=== PATIENT | female | born 1965 | race Caucasian/White ===

== ENCOUNTER 2016-12-03 17:34 | Observation (INO) | payer OTHER ==
--- NOTE | 2016-12-03 18:09 | PDOC ---
History of Present Illness - General Chief Complaint: Weakness Stated Complaint: WEAKNESS/DIZZINESS Time Seen by Provider: 12/03/16 17:44 History Source: Patient - History of Present Illness Associated Symptoms: reports: weakness. denies: cough, fever/chills, headaches , nausea/vomiting, shortness of breath Past History - Past Medical History Allergies/Adverse Reactions: Allergies Allergy/AdvReac Type Severity Reaction Status Date / Time No Known Allergies Allergy Verified 12/03/16 18:15 Home Medications: Ambulatory Orders NK [No Known Home Medication] 11/13/14 - Suicide/Smoking/Psychosocial Hx Smoking History: Never smoked Number of Cigarettes Smoked Daily: 0 Hx Alcohol Use: No Drug/Substance Use Hx: No Review of Systems - Review of Systems Constitutional: No: Chills, Fever Respiratory: No: Cough, Shortness of Breath Cardiac (ROS): Yes: Lightheadedness, Syncope. No: Chest Pain, Palpitations ABD/GI: No: Constipated, Diarrhea, Nausea, Vomiting : No: Dysuria Neurological: Yes: Numbness, Dizziness. No: Headache, Tingling *Physical Exam - Physical Exam General Appearance: Yes: Appropriately Dressed. No: Apparent Distress HEENT: positive: Normal Voice Neck: positive: Supple Respiratory/Chest: positive: Lungs Clear, Normal Breath Sounds. negative: Respiratory Distress Cardiovascular: positive: Regular Rate, S1, S2 Gastrointestinal/Abdominal: positive: Soft. negative: Tender Extremity: positive: Normal Inspection. negative: Pedal Edema Integumentary: positive: Dry, Warm Neurologic: positive: Fully Oriented, Alert, Normal Mood/Affect, Motor Strength 5/5, Finger to Nose. negative: Facial Droop (no nystagmus, Monica intact, no drift, no ataxia), Disoriented Heart Score/ECG Review - ECG Intrepretation Comment:: 12/03/16 18:55 Twelve-lead EKG was performed and reviewed by me. There is normal sinus rhythm with a normal rate. The axis is normal. The intervals are normal. There are no ST or T wave abnormalities. Impression: Normal twelve-lead EKG ED Treatment Course - LABORATORY CBC & Chemistry Diagram: 12/04/16 05:10 12/04/16 05:10 - RADIOLOGY Radiology Studies Ordered: Category Date Time Status HEAD CT WITHOUT CONTRAST [CT] Stat CT Scan 12/03/16 18:03 Ordered CHEST X-RAY PORTABLE* [RAD] Stat Radiology 12/03/16 18:03 Ordered Medical Decision Making - Medical Decision Making 12/03/16 18:04 51-year-old female, denies any past medical history, brought in by family for syncope. Patient states while sitting on her couch this evening she became lightheaded and next she remembers is waking up on her couch. Unclear how long she was out for. States she feels better at this time but reports some numbness to her left arm. Denies chest pain, shortness of breath, diaphoresis, nausea, vomiting, headache, visual changes, vertigo, slurred speech or focal weakness. Patient does report feeling generally weak for the past several days. No abdominal pain, change in bowel movements, dysuria, cough, fever or chills. Patient states she has had similar syncope in the past but did not seek medical evaluation at that time. No known cardiac history and no recent cardiac workup PMD: Dr Villela See exam Syncope R/o ACS, less likely CVA No CP or SOB Non-focal in ED -EKG -cxr -labs -anticipate admission to tele OBs . 12/03/16 18:09 12/03/16 18:57 Pt signed out to [facility] pending w/u and admission 12/03/16 19:01 *DC/Admit/Observation/Transfer Diagnosis at time of Disposition: Syncope - Discharge Dispostion Disposition: HOME
[2016-12-03 18:45] LABS: BASOPHIL 0.4 % (0-2.0); EOSINOPHIL 5.6 % (0-4.5); MCH 29.5 pg (25.7-33.7); MCHC 33.8 g/dl (32.0-36.0); MEAN CELL VOLUME 87.3 fl (80-96); MEAN PLT VOLUME 7.4 fl (7.5-11.1); NEUTROPHILS 74.7 % (42.8-82.8); PLATELET COUNT 339 K/MM3 (134-434); RDW 13.8 % (11.6-15.6); WHITE BLOOD COUNT 10.3 K/mm3 (4.0-10.0)
[2016-12-03 19:16] LABS: ALBUMIN 4.1 g/dl (3.4-5.0); ANION GAP 7 (8-16); BILIRUBIN,TOTAL 0.2 mg/dL (0.2-1.0); CALCIUM 9.2 mg/dL (8.5-10.1); CO2 30 mmol/L (21-32); CREATININE 0.9 mg/dL (0.55-1.02); GLUCOSE,RANDOM 99 mg/dL (74-106); SGOT/AST 15 U/L (15-37); SGPT/ALT 29 U/L (12-78); TOT PROT 7.8 g/dl (6.4-8.2)
[2016-12-03 19:18] LABS: ALK PHOS 145 U/L (45-117); CPK 105 IU/L (26-192); TROPONIN I < 0.02 ng/ml (0.00-0.05)
--- NOTE | 2016-12-03 19:52 | PDOC ---
*Physical Exam - Vital Signs Last Vital Signs Temp Pulse Resp BP Pulse Ox 97.8 F 82 18 136/73 100 12/03/16 17:36 12/03/16 17:36 12/03/16 17:36 12/03/16 17:36 12/03/16 17:36 - Physical Exam General Appearance: Yes: Appropriately Dressed Respiratory/Chest: positive: Lungs Clear, Normal Breath Sounds Cardiovascular: positive: Regular Rhythm, Regular Rate (is) Gastrointestinal/Abdominal: positive: Normal Bowel Sounds, Soft Extremity: positive: Normal Capillary Refill Integumentary: positive: Normal Color, Dry, Warm Neurologic: positive: Fully Oriented, Alert ED Treatment Course - LABORATORY CBC & Chemistry Diagram: 12/03/16 18:41 12/03/16 18:41 - ADDITIONAL ORDERS Additional order review: Laboratory Results 12/03/16 12/03/16 18:41 18:41 Sodium 140 Potassium 4.5 Chloride 103 Carbon Dioxide 30 Anion Gap 7 L BUN 14 Creatinine 0.9 Creat Clearance w eGFR > 60 Random Glucose 99 Calcium 9.2 Total Bilirubin 0.2 AST 15 ALT 29 Alkaline Phosphatase 145 H D Creatine Kinase 105 Troponin I < 0.02 B-Natriuretic Peptide 62.24 Total Protein 7.8 Albumin 4.1 12/03/16 18:41 RBC 4.78 MCV 87.3 MCHC 33.8 RDW 13.8 D MPV 7.4 L Neutrophils % 74.7 D Lymphocytes % 14.7 D Monocytes % 4.6 Eosinophils % 5.6 H Basophils % 0.4 Medical Decision Making - Medical Decision Making 12/03/16 20:41 patient currently asymptomatic. due to syncope prior to arrival patient is placed on obs/tele for further monitoring. patient signed out to [facility] for further management of care. *DC/Admit/Observation/Transfer Diagnosis at time of Disposition: Syncope Qualifiers: Syncope type: unspecified Qualified Code(s): R55 - Syncope and collapse; R55 - Syncope and collapse - Discharge Dispostion Admit: Yes
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
--- NOTE | 2016-12-03 22:31 | PDOC ---
*Physical Exam - Vital Signs Last Vital Signs Temp Pulse Resp BP Pulse Ox 97.8 F 82 18 136/73 100 12/03/16 17:36 12/03/16 17:36 12/03/16 17:36 12/03/16 17:36 12/03/16 17:36 ED Treatment Course - LABORATORY CBC & Chemistry Diagram: 12/03/16 18:41 12/03/16 18:41 - ADDITIONAL ORDERS Additional order review: Laboratory Results 12/03/16 12/03/16 18:41 18:41 Sodium 140 Potassium 4.5 Chloride 103 Carbon Dioxide 30 Anion Gap 7 L BUN 14 Creatinine 0.9 Creat Clearance w eGFR > 60 Random Glucose 99 Calcium 9.2 Total Bilirubin 0.2 AST 15 ALT 29 Alkaline Phosphatase 145 H D Creatine Kinase 105 Troponin I < 0.02 B-Natriuretic Peptide 62.24 Total Protein 7.8 Albumin 4.1 12/03/16 18:41 RBC 4.78 MCV 87.3 MCHC 33.8 RDW 13.8 D MPV 7.4 L Neutrophils % 74.7 D Lymphocytes % 14.7 D Monocytes % 4.6 Eosinophils % 5.6 H Basophils % 0.4 Medical Decision Making - Medical Decision Making 12/03/16 22:30 Pt seen by the Advanced Practice Provider under my direct supervision Ancillary studies reviewed I agree with plan as outlined by the Advanced Practice Provider *DC/Admit/Observation/Transfer Diagnosis at time of Disposition: Syncope
[2016-12-03 22:57] LABS: URINE APPEARANCE CLEAR; URINE BILIRUBIN NEGATIVE (NEGATIVE); URINE BLOOD NEGATIVE (NEGATIVE); URINE COLOR STRAW; URINE GLUCOSE (UA) NEGATIVE (NEGATIVE); URINE KETONE NEGATIVE (NEGATIVE); URINE NITRITE NEGATIVE (NEGATIVE); URINE PROTEIN NEGATIVE (NEGATIVE); URINE UROBILINOGEN NEGATIVE mg/dL (0.2-1.0)
[2016-12-04 01:36] LABS: CPK 87 IU/L (26-192); TROPONIN I < 0.02 ng/ml (0.00-0.05)
[2016-12-04 06:08] LABS: BASOPHIL 0.4 % (0-2.0); EOSINOPHIL 10.6 % (0-4.5); MCH 30.1 pg (25.7-33.7); MCHC 34.3 g/dl (32.0-36.0); MEAN CELL VOLUME 87.8 fl (80-96); MEAN PLT VOLUME 7.6 fl (7.5-11.1); NEUTROPHILS 52.6 % (42.8-82.8); PLATELET COUNT 356 K/MM3 (134-434); RDW 13.7 % (11.6-15.6); WHITE BLOOD COUNT 9.1 K/mm3 (4.0-10.0)
[2016-12-04 06:34] LABS: ANION GAP 7 (8-16); CALCIUM 9.5 mg/dL (8.5-10.1); CO2 30 mmol/L (21-32); MAGNESIUM 2.4 mg/dL (1.8-2.4)
[2016-12-04 06:40] LABS: CPK 80 IU/L (26-192); CREATININE 0.9 mg/dL (0.55-1.02); GLUCOSE,RANDOM 97 mg/dL (74-106); PHOSPHOROUS 4.1 mg/dL (2.5-4.9); TROPONIN I < 0.02 ng/ml (0.00-0.05)
--- NOTE | 2016-12-04 07:55 | PN ---
Physical Exam: SUBJECTIVE: Patient seen and examined at bedside. Daughter present who served as vision impaired teacher. Patient reports complete resolution of her symptoms. She does not feel "fatigued" or like she is going to pass out. The left hand/arm numbness she experienced has resolved. Of note, patient left arm and leg are smaller and shorter than her right arm and leg. 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 She has never worn a brace, or used orthotics. She denies any history of hip OBJECTIVE: Vital Signs Period Temp Pulse Resp BP Sys/Looney Pulse Ox Last 24 Hr 70-77 15-16 128-134/68-78 99-100 GENERAL: The patient is awake, alert, and fully oriented, in no acute distress. HEAD: Normal with no signs of trauma. EYES: PERRLA, extraocular movements intact, sclera anicteric, conjunctiva clear. No ptosis. ENT: Ears normal, nares patent, oropharynx clear without exudates, moist mucous membranes. No palatine myoclonus. No TMJ clicking. NECK: Trachea midline, full range of motion, supple. LUNGS: Breath sounds equal, clear to auscultation bilaterally, no wheezes, no crackles, no accessory muscle use. HEART: Regular rate and rhythm, S1, S2 without murmur, rub or gallop. ABDOMEN: Soft, nontender, nondistended, normoactive bowel sounds, no guarding, no rebound, no hepatosplenomegaly, no masses. UPPER EXTREMITIES: 2+ pulses, warm, well-perfused, no edema. Right arm is smaller and shorter than left arm, decreased 3/5 motor right hand, 5/5 motor left hand, 5/5 sensory right and left LOWER EXTREMITIES: 2+pulses, warm, well-perfused, no edema. Left leg is smaller in circumference than right leg. Ambulates without apparent limp. Able to heel/ toe walk. Negative pronator drift. Positive Rhomberg. 5/5 motor, 5/5 sensory. NEUROLOGICAL: Cranial nerves II through XII grossly intact. Normal speech, steady gait. observed. PSYCH: Normal mood, normal affect. SKIN: Warm, dry, normal turgor, no rashes or lesions noted Laboratory Results - last 24 hr 12/03/16 12/04/16 12/04/16 21:58 00:50 05:10 WBC 9.1 RBC 4.59 Hgb 13.8 Hct 40.3 MCV 87.8 MCH 30.1 MCHC 34.3 RDW 13.7 Plt Count 356 MPV 7.6 Neutrophils % 52.6 D Lymphocytes % 29.1 D Monocytes % 7.3 Eosinophils % 10.6 H D Basophils % 0.4 Sodium Potassium Chloride Carbon Dioxide Anion Gap BUN Creatinine Random Glucose Calcium Phosphorus Magnesium Creatine Kinase 87 Troponin I < 0.02 Urine Color Straw Urine Appearance Clear Urine pH 8.0 Urine Protein Negative Urine Glucose (UA) Negative Urine Ketones Negative Urine Blood Negative Urine Nitrite Negative Urine Bilirubin Negative Urine Urobilinogen Negative 12/04/16 05:10 WBC RBC Hgb Hct MCV MCH MCHC RDW Plt Count MPV Neutrophils % Lymphocytes % Monocytes % Eosinophils % Basophils % Sodium 140 Potassium 4.2 Chloride 103 Carbon Dioxide 30 Anion Gap 7 L BUN 13 Creatinine 0.9 Random Glucose 97 Calcium 9.5 Phosphorus 4.1 Magnesium 2.4 Creatine Kinase 80 Troponin I < 0.02 Urine Color Urine Appearance Urine pH Urine Protein Urine Glucose (UA) Urine Ketones Urine Blood Urine Nitrite Urine Bilirubin Urine Urobilinogen Current Medications Generic Name Dose Route Start Last Admin Trade Name Freq PRN Reason Stop Dose Admin Enoxaparin Sodium 40 mg 12/05/16 10:00 Lovenox - SQ DAILY KIERSTEN ASSESSMENT/PLAN: 51 year-old female with no significant PMH admitted for syncopal episode. 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 Yap (neuro), Lili (oncology), Zarina ( radiology), Betty (neurosurgery) --evaluations are ongoing re: immediate and long-term observation/treatment Syncope --more likely neuro-related than cardiac --serial troponins negative --ECG not suggestive of acute ischemic event --Echo: LV normal; RV normal; trace PI --telemetry monitoring --cardiology following F/E/N Fluids: PO intake adequate Electrolytes: replete as indicated Nutrition: regular diet DVT prophylaxis: lovenox, oob, ambulation Physical therapy evaluation Dispo: continues to require inpatient care. Full Code. Visit type - Emergency Visit Emergency Visit: Yes ED Registration Date: 12/04/16 Care time: The patient presented to the Emergency Department on the above date and was hospitalized for further evaluation of their emergent condition. - New Patient This patient is new to me today: Yes Date on this admission: 12/04/16 - Critical Care Critical Care patient: No
[2016-12-04 10:02] LABS: URINE LEUK ESTERASE Negative (NEGATIVE)
--- NOTE | 2016-12-04 10:31 | CON.CARD ---
Cardiology Consult (text) - Consultation Consultation Note: cc: syncope hpi: 51 f no sig pmhx here with syncope. Pt has no hx hrt dz. Yesterday she did not eat or drink much and then was out shopping and pushing cart up hill to go home. While walking home began to feel weak, lightheaded. When got home she sat down and felt lightheaded still and thinks she may have passed out and awoke a few minutes later on the couch. No palps, cp, sob, pnd, orthopnea, le evin. Feels well today. pmh: per hpi psh: nc social: no tob fam: no premature cad, scd ros: per hpi; no nvd, fever, cough, nasal congestion, wt loss, muscle pain, gib , hematuria, dysuria, vision changes, rashid meds: none taken pe: Vital Signs Period Temp Pulse Resp BP Sys/Looney Pulse Ox Last 24 Hr 97.8 F-98.7 F 70-82 15-18 102-136/64-78 99-100 nad no jvd rrr s1s2 no mrg cta bl nl eff aaox3 no le e/c/c abd nt nd pos bs no jaundice diaphoresis pos dp pt no carotid bruits Laboratory Last Values WBC 9.1 K/mm3 (4.0-10.0) 12/04/16 05:10 RBC 4.59 M/mm3 (3.60-5.2) 12/04/16 05:10 Hgb 13.8 GM/dL (10.7-15.3) 12/04/16 05:10 Hct 40.3 % (32.4-45.2) 12/04/16 05:10 MCV 87.8 fl (80-96) 12/04/16 05:10 MCH 30.1 pg (25.7-33.7) 12/04/16 05:10 MCHC 34.3 g/dl (32.0-36.0) 12/04/16 05:10 RDW 13.7 % (11.6-15.6) 12/04/16 05:10 Plt Count 356 K/MM3 (134-434) 12/04/16 05:10 MPV 7.6 fl (7.5-11.1) 12/04/16 05:10 Neutrophils % 52.6 % (42.8-82.8) D 12/04/16 05:10 Lymphocytes % 29.1 % (8-40) D 12/04/16 05:10 Monocytes % 7.3 % (3.8-10.2) 12/04/16 05:10 Eosinophils % 10.6 % (0-4.5) H D 12/04/16 05:10 Basophils % 0.4 % (0-2.0) 12/04/16 05:10 Sodium 140 mmol/L (136-145) 12/04/16 05:10 Potassium 4.2 mmol/L (3.5-5.1) 12/04/16 05:10 Chloride 103 mmol/L (98-107) 12/04/16 05:10 Carbon Dioxide 30 mmol/L (21-32) 12/04/16 05:10 Anion Gap 7 (8-16) L 12/04/16 05:10 BUN 13 mg/dL (7-18) 12/04/16 05:10 Creatinine 0.9 mg/dL (0.55-1.02) 12/04/16 05:10 Creat Clearance w eGFR > 60 (>60) 12/03/16 18:41 Random Glucose 97 mg/dL (74-106) 12/04/16 05:10 Calcium 9.5 mg/dL (8.5-10.1) 12/04/16 05:10 Phosphorus 4.1 mg/dL (2.5-4.9) 12/04/16 05:10 Magnesium 2.4 mg/dL (1.8-2.4) 12/04/16 05:10 Total Bilirubin 0.2 mg/dL (0.2-1.0) 12/03/16 18:41 AST 15 U/L (15-37) 12/03/16 18:41 ALT 29 U/L (12-78) 12/03/16 18:41 Alkaline Phosphatase 145 U/L (45-117) H D 12/03/16 18:41 Creatine Kinase 80 IU/L (26-192) 12/04/16 05:10 Troponin I < 0.02 ng/ml (0.00-0.05) 12/04/16 05:10 B-Natriuretic Peptide 62.24 pg/ml (5-125) 12/03/16 18:41 Total Protein 7.8 g/dl (6.4-8.2) 12/03/16 18:41 Albumin 4.1 g/dl (3.4-5.0) 12/03/16 18:41 Urine Color Straw 12/03/16 21:58 Urine Appearance Clear 12/03/16 21:58 Urine pH 8.0 (5.0-8.0) 12/03/16 21:58 Ur Specific [place] 1.015 (1.005-1.025) 12/03/16 21:58 Urine Protein Negative (NEGATIVE) 12/03/16 21:58 Urine Glucose (UA) Negative (NEGATIVE) 12/03/16 21:58 Urine Ketones Negative (NEGATIVE) 12/03/16 21:58 Urine Blood Negative (NEGATIVE) 12/03/16 21:58 Urine Nitrite Negative (NEGATIVE) 12/03/16 21:58 Urine Bilirubin Negative (NEGATIVE) 12/03/16 21:58 Urine Urobilinogen Negative mg/dL (0.2-1.0) 12/03/16 21:58 Ur Leukocyte Esterase Negative (NEGATIVE) 12/03/16 21:58 ecg 12/03/16: sr, nl intervals, no ischemic changes cxr: clear lungs head ct: no acute findings a/p: 51 f no sig pmhx here with syncope. syncope: -no obvious cardiac etiology at present -ecg benign, ce's negx3 -check orthostatics, echo, monitor on tele -neuro eval pending
--- NOTE | 2016-12-04 10:31 | CONSULT ---
Consult - text type - Consultation Consultation Note: Neurology HISTORY OF PRESENT ILLNESS: This is a 51 year old female with no significant past medical history who presented to the ED s/p syncopal episode in which she became dizzy when walking home from the grocery store. Reportedly, while at home fainted while on the sofa and gerardo to the hospital bu granddaughter. Patient reports being at baseline and denies any memory of event. CT head compelted and did not show acute changes. She is awake, alert, oriented to person, place, month and year. She has no slurred speech or weakness. She is not having any sensory changes and no issues with gait. Recent Travel: pt denies PAST MEDICAL HISTORY: anxiety, never treated sinus problems PAST SURGICAL HISTORY: c section Social History: Smoking: pt denies Alcohol: pt denies Drugs: pt denies Family History: father s/p CVA x 2, first in his 60s, PUD mother age 28, childbirth 5 siblings, HTN Home Medication List Medication Instructions Recorded Confirmed Type NK [No Known Home Medication] 11/13/14 12/03/16 History Allergies No Known Allergies Allergy (Verified 12/03/16 18:15) REVIEW OF SYSTEMS CONSTITUTIONAL: Absent: fever, chills, diaphoresis, generalized weakness, malaise, loss of appetite, weight change HEENT: Absent: rhinorrhea, nasal congestion, throat pain, throat swelling, difficulty swallowing, mouth swelling, ear pain, eye pain, visual changes CARDIOVASCULAR: syncope Absent: chest pain, palpitations, irregular heart rate, lightheadedness, peripheral edema RESPIRATORY: Absent: cough, shortness of breath, dyspnea with exertion, orthopnea, wheezing, stridor, hemoptysis GASTROINTESTINAL: Absent: abdominal pain, abdominal distension, nausea, vomiting, diarrhea, constipation, melena, hematochezia GENITOURINARY: Absent: dysuria, frequency, urgency, hesitancy, hematuria, flank pain, genital pain MUSCULOSKELETAL: Absent: myalgia, arthralgia, joint swelling, back pain, neck pain SKIN: Absent: rash, itching, pallor HEMATOLOGIC/IMMUNOLOGIC: Absent: easy bleeding, easy bruising, lymphadenopathy, frequent infections ENDOCRINE: Absent: unexplained weight gain, unexplained weight loss, heat intolerance, cold intolerance NEUROLOGIC: focal weakness or paresthesias Absent: headache, dizziness, unsteady gait, seizure, mental status changes, bladder or bowel incontinence PSYCHIATRIC: Absent: anxiety, depression, suicidal or homicidal ideation, hallucinations. Vital Signs Period Temp Pulse Resp BP Sys/Looney Pulse Ox Last 24 Hr 97.8 F-98.7 F 70-82 15-18 102-136/64-78 99-100 GENERAL: Awake, alert, and fully oriented, in no acute distress. HEAD: Normal with no signs of trauma. EYES: Pupils equal, round and reactive to light, extraocular movements intact, sclera anicteric, conjunctiva clear. No lid lag. EARS, NOSE, THROAT: Ears normal, nares patent, oropharynx clear without exudates. Moist mucous membranes. NECK: Normal range of motion, supple without lymphadenopathy, JVD, or masses. LUNGS: Breath sounds equal, clear to auscultation bilaterally. No wheezes, and no crackles. No accessory muscle use. HEART: Regular rate and rhythm, normal S1 and S2 without murmur, rub or gallop. ABDOMEN: Soft, nontender, not distended, normoactive bowel sounds, no guarding, no rebound, no masses. No hepatomegaly or splenomegaly. MUSCULOSKELETAL: Normal range of motion at all joints. No bony deformities or tenderness. No CVA tenderness. UPPER EXTREMITIES: 2+ pulses, warm, well-perfused. No cyanosis. No clubbing. No peripheral edema. LOWER EXTREMITIES: 2+ pulses, warm, well-perfused. No calf tenderness. No peripheral edema. NEUROLOGICAL: Cranial nerves II-XII intact. Normal speech. Sensory intact, motor full strenght b/l, gait deferred PSYCHIATRIC: Cooperative. Good eye contact. Appropriate mood and affect. SKIN: Warm, dry, normal turgor, no rashes or lesions noted, normal capillary refill. Laboratory Results - last 24 hr 3 12/03/16 12/03/16 12/03/16 18:41 18:41 18:41 WBC 10.3 H RBC 4.78 Hgb 14.1 Hct 41.7 MCV 87.3 MCH 29.5 MCHC 33.8 RDW 13.8 D Plt Count 339 MPV 7.4 L Neutrophils % 74.7 D Lymphocytes % 14.7 D Monocytes % 4.6 Eosinophils % 5.6 H Basophils % 0.4 Sodium 140 Potassium 4.5 Chloride 103 Carbon Dioxide 30 Anion Gap 7 L BUN 14 Creatinine 0.9 Creat Clearance w eGFR > 60 Random Glucose 99 Calcium 9.2 Total Bilirubin 0.2 AST 15 ALT 29 Alkaline Phosphatase 145 H D Creatine Kinase 105 Troponin I < 0.02 B-Natriuretic Peptide 62.24 Total Protein 7.8 Albumin 4.[address]/HEAD CT WITHOUT CONTRAST Syncope. CT scan of the brain without intravenous contrast. The ventricles and basal cisterns appear unremarkable. No gross mass lesion, focal infarct or intracranial hemorrhage are identified. Visualized paranasal sinuses and mastoid air cells are well-aerated. The calvarium is intact. Impression: No evidence of a focal intracranial lesion or hemorrhage seen. PLAN: 51 year old female with no significant past medical history who presented to the ED s/p syncopal episode in which she became dizzy when walking home from the grocery store. Reportedly, while at home fainted while on the sofa and gerardo to the hospital bu granddaughter. Patient reports being at baseline and denies any memory of event. CT head compelted and did not show acute changes. She is awake, alert, oriented to person, place, month and year. She has no slurred speech or weakness. She is not having any sensory changes and no issues with gait. Cardiac workup recommended. IV/PO fluids as tolerated. Neurologically at baseline, no further recommendations at this time.
--- NOTE | 2016-12-04 11:56 | EKG ---
Test Reason : Blood Pressure : / mmHG Vent. Rate : 074 BPM Atrial Rate : 074 BPM P-R Int : 148 ms QRS Dur : 074 ms QT Int : 380 ms P-R-T Axes : 024 005 027 degrees QTc Int : 421 ms POOR DATA QUALITY, INTERPRETATION MAY BE ADVERSELY AFFECTED NORMAL SINUS RHYTHM NORMAL ECG WHEN COMPARED WITH ECG OF 13-NOV-2014 23:33, NO SIGNIFICANT CHANGE WAS FOUND Confirmed by DRAGAN GUERRERO, JUAN ([id number]) on 12/04/2016 11:55:52 AM Referred By: Confirmed By:JUAN ARCHIBALD MD
[2016-12-04 14:43] VITALS: BMI 34.0
--- NOTE | 2016-12-04 15:20 | CONSULT ---
Consult Consult Specialty:: Hematology/Oncology Reason for Consultation:: Low grade glioma. - History of Present Illness History of Present Illness: 51 year old female with no significant past medical history who presented to the ED s/p syncopal episode in which she became dizzy when walking home from the grocery store. She has been seen by Cardiology and Neurology. Presently she is at her baseline. She underwent MRI brain which showed a low grade glioma. patient seen and examined. Daughter at bedside. Now pt is asymptomatic and completely at her baseline. She denies any complains. - History Source History Provided By: Patient, Medical Record - Alcohol/Substance Use Hx Alcohol Use: No - Smoking History Smoking history: Never smoked Have you smoked in the past 12 months: No Aproximately how many cigarettes per day: 0 Home Medications - Allergies Allergies/Adverse Reactions: Allergies Allergy/AdvReac Type Severity Reaction Status Date / Time No Known Allergies Allergy Verified 12/03/16 18:15 - Home Medications Home Medications: Ambulatory Orders NK [No Known Home Medication] 11/13/14 Family Disease History - Family Disease History Family History: Denies Review of Systems - Review of Systems Constitutional: reports: No Symptoms Eyes: reports: No Symptoms HENT: reports: No Symptoms Neck: reports: No Symptoms Cardiovascular: reports: No Symptoms Respiratory: reports: No Symptoms Gastrointestinal: reports: No Symptoms Genitourinary: reports: No Symptoms Musculoskeletal: reports: No Symptoms Hematology/Lymphatic: reports: No Symptoms Physical Exam Vital Signs: Vital Signs Temperature 97.8 F 12/04/16 14:39 Pulse Rate 72 12/04/16 14:39 Respiratory Rate 18 12/04/16 14:47 Blood Pressure 148/66 12/04/16 14:39 O2 Sat by Pulse Oximetry (%) 99 12/04/16 14:47 Constitutional: Yes: Well Nourished, No Distress, Calm Eyes: Yes: Conjunctiva Clear HENT: Yes: Atraumatic, Normocephalic Neck: Yes: Supple, Trachea Midline Cardiovascular: Yes: Regular Rate and Rhythm Respiratory: Yes: Regular, CTA Bilaterally Gastrointestinal: Yes: Normal Bowel Sounds Extremities: Yes: WNL Edema: No Labs: CBC, BMP 12/04/16 05:10 12/04/16 05:10 Imaging - Results Cat Scan: Report Reviewed MRI: Report Reviewed Problem List - Problems (1) Low grade glioma of brain Code(s): C71.9 - MALIGNANT NEOPLASM OF BRAIN, UNSPECIFIED Assessment/Plan Patient with MRI brain compatible with low grade glioma. NCCN recommends for image evidence of low grade gliomas, resection ( partial vs complete) or continued follow-up with serial imaging studies ( MRI brain). The adjuvant therapy ( if resected ,depending on the pathology will need RT with or without chemotherapy). Therefore, recommend Neuro-Surgical consult to evaluate further. d/w Hospitalist.
[2016-12-05 09:50] VITALS: BP 126/86; PULSE 81; TEMP 98.3
[2016-12-05] MEDS ORDERED: ENOXAPARIN NA (PORCINE) 40 MG/0.4 ML DISP.SYRIN SQ SCH (10:00)
--- NOTE | 2016-12-05 10:00 | PN ---
Progress Note (short form) - Note Progress Note: Neurology HISTORY OF PRESENT ILLNESS: This is a 51 year old female with no significant past medical history who presented to the ED s/p syncopal episode in which she became dizzy when walking home from the grocery store. Reportedly, while at home fainted while on the sofa and gerardo to the hospital bu granddaughter. Patient reports being at baseline and denies any memory of event. CT head compelted and did not show acute changes. She is awake, alert, oriented to person, place, month and year. She has no slurred speech or weakness. She is not having any sensory changes and no issues with gait. The patient completed MRI brain and there was concern for possible mass, reviewed with family. There was then MRI with contrast, no enhancement, question of glioma? Patient asymptomatic, spoke with hospitalist, unclear if actual growth. Oncology consulted. Also mentioned possible neurosurgery input. Vital Signs Period Temp Pulse Resp BP Sys/Looney Pulse Ox Last 24 Hr 97.8 F-98.6 F 67-82 18-18 123-166/58-86 99-99 GENERAL: Awake, alert, and fully oriented, in no acute distress. HEAD: Normal with no signs of trauma. EYES: Pupils equal, round and reactive to light, extraocular movements intact, sclera anicteric, conjunctiva clear. No lid lag. EARS, NOSE, THROAT: Ears normal, nares patent, oropharynx clear without exudates. Moist mucous membranes. NECK: Normal range of motion, supple without lymphadenopathy, JVD, or masses. LUNGS: Breath sounds equal, clear to auscultation bilaterally. No wheezes, and no crackles. No accessory muscle use. HEART: Regular rate and rhythm, normal S1 and S2 without murmur, rub or gallop. ABDOMEN: Soft, nontender, not distended, normoactive bowel sounds, no guarding, no rebound, no masses. No hepatomegaly or splenomegaly. MUSCULOSKELETAL: Normal range of motion at all joints. No bony deformities or tenderness. No CVA tenderness. UPPER EXTREMITIES: 2+ pulses, warm, well-perfused. No cyanosis. No clubbing. No peripheral edema. LOWER EXTREMITIES: 2+ pulses, warm, well-perfused. No calf tenderness. No peripheral edema. NEUROLOGICAL: Cranial nerves II-XII intact. Normal speech. Sensory intact, motor full strenght b/l, gait deferred PSYCHIATRIC: Cooperative. Good eye contact. Appropriate mood and affect. SKIN: Warm, dry, normal turgor, no rashes or lesions noted, normal capillary refill. CBCD WBC 9.1 K/mm3 (4.0-10.0) 12/04/16 05:10 RBC 4.59 M/mm3 (3.60-5.2) 12/04/16 05:10 Hgb 13.8 GM/dL (10.7-15.3) 12/04/16 05:10 Hct 40.3 % (32.4-45.2) 12/04/16 05:10 MCV 87.8 fl (80-96) 12/04/16 05:10 MCHC 34.3 g/dl (32.0-36.0) 12/04/16 05:10 RDW 13.7 % (11.6-15.6) 12/04/16 05:10 Plt Count 356 K/MM3 (134-434) 12/04/16 05:10 MPV 7.6 fl (7.5-11.1) 12/04/16 05:10 CMP Sodium 140 mmol/L (136-145) 12/04/16 05:10 Potassium 4.2 mmol/L (3.5-5.1) 12/04/16 05:10 Chloride 103 mmol/L (98-107) 12/04/16 05:10 Carbon Dioxide 30 mmol/L (21-32) 12/04/16 05:10 Anion Gap 7 (8-16) L 12/04/16 05:10 BUN 13 mg/dL (7-18) 12/04/16 05:10 Creatinine 0.9 mg/dL (0.55-1.02) 12/04/16 05:10 Creat Clearance w eGFR > 60 (>60) 12/03/16 18:41 Calcium 9.5 mg/dL (8.5-10.1) 12/04/16 05:10 Total Bilirubin 0.2 mg/dL (0.2-1.0) 12/03/16 18:41 AST 15 U/L (15-37) 12/03/16 18:41 ALT 29 U/L (12-78) 12/03/16 18:41 Alkaline Phosphatase 145 U/L (45-117) H D 10/11/17 18:41 Total Protein 7.8 g/dl (6.4-8.2) 12/03/16 18:41 Albumin 4.1 g/dl (3.4-5.0) 12/03/16 18:[address]/HEAD reviewed MRI BRAIN REVIEWED MRI BRAIN WITH CONTRAST reviewed PLAN: 51 year old female with no significant past medical history who presented to the ED s/p syncopal episode in which she became dizzy when walking home from the grocery store. Reportedly, while at home fainted while on the sofa and gerardo to the hospital bu granddaughter. Patient reports being at baseline and denies any memory of event. CT head compelted and did not show acute changes. She is awake, alert, oriented to person, place, month and year. She has no slurred speech or weakness. She is not having any sensory changes and no issues with gait. Cardiac workup recommended. IV/PO fluids as tolerated. Neurologically at baseline, no further recommendations at this time. -Unclear if this is growth -Oncology consulted -Consider NSGY consult -Patient asymptomatic -Most likely would be followed with follow up imaging -Discussed with family at bedside
--- NOTE | 2016-12-05 10:30 | PN ---
Progress Note (short form) - Note Progress Note: s: no cp sob palps dizzy o: Vital Signs Period Temp Pulse Resp BP Sys/Looney Pulse Ox Last 24 Hr 97.8 F-98.6 F 67-82 18-18 123-166/58-86 99-99 nad no jvd rrr s1s2 no mrg cta bl nl eff aaox3 no le e/c/c abd nt nd pos bs no jaundice diaphoresis Current Medications Generic Name Dose Route Start Last Admin Trade Name Freq PRN Reason Stop Dose Admin Enoxaparin Sodium 40 mg 12/05/16 10:00 12/05/16 09:23 Lovenox - SQ 40 mg DAILY KIERSTEN Administration CBC, BMP 12/04/16 05:10 12/04/16 05:10 ecg 12/03/16: sr, nl intervals, no ischemic changes cxr: clear lungs tele: sr/sinus tachy echo 11/2016: nl lv/rv, no sig valve path a/p: 51 f no sig pmhx here with syncope. syncope: -no obvious cardiac etiology -ecg benign, ce's negx3, echo unremarkable, orthostatics normal, tele benign -neuro workup revealed low grade glioma on brain mri, further plans per neuro cardiac bonilla remains stable, can dc tele
--- NOTE | 2016-12-05 10:38 | PN ---
Progress Note (short form) - Note Progress Note: Subjective: The patient was seen and examined at the bedside, she reports feeling better today. No complaints at this time. Current Medications Generic Name Dose Route Start Last Admin Trade Name Nancy PRN Reason Stop Dose Admin Enoxaparin Sodium 40 mg 12/05/16 10:00 12/05/16 09:23 Lovenox - SQ 40 mg DAILY KIERSTEN Administration Objective: Vital Signs Period Temp Pulse Resp BP Sys/Looney Pulse Ox Last 24 Hr 97.8 F-98.6 F 67-82 18-18 123-166/58-86 99-99 Physical Exam: General: NAD, A&Ox3 Lungs: CTA bilaterally Heart: RRR, S1S2 Abd: Soft, non-tender, non-distended. Normoactive bowel sounds Ext: LUE/LLE smaller than right and decrease muscle strength. Warm, well- perfused. No edema Neuro: Positive romberg CBCD WBC 9.1 K/mm3 (4.0-10.0) 12/04/16 05:10 RBC 4.59 M/mm3 (3.60-5.2) 12/04/16 05:10 Hgb 13.8 GM/dL (10.7-15.3) 12/04/16 05:10 Hct 40.3 % (32.4-45.2) 12/04/16 05:10 MCV 87.8 fl (80-96) 12/04/16 05:10 MCHC 34.3 g/dl (32.0-36.0) 12/04/16 05:10 RDW 13.7 % (11.6-15.6) 12/04/16 05:10 Plt Count 356 K/MM3 (134-434) 12/04/16 05:10 MPV 7.6 fl (7.5-11.1) 12/04/16 05:10 CMP Sodium 140 mmol/L (136-145) 12/04/16 05:10 Potassium 4.2 mmol/L (3.5-5.1) 12/04/16 05:10 Chloride 103 mmol/L (98-107) 12/04/16 05:10 Carbon Dioxide 30 mmol/L (21-32) 12/04/16 05:10 Anion Gap 7 (8-16) L 12/04/16 05:10 BUN 13 mg/dL (7-18) 12/04/16 05:10 Creatinine 0.9 mg/dL (0.55-1.02) 12/04/16 05:10 Creat Clearance w eGFR > 60 (>60) 12/03/16 18:41 Random Glucose 97 mg/dL (74-106) 12/04/16 05:10 Calcium 9.5 mg/dL (8.5-10.1) 12/04/16 05:10 Total Bilirubin 0.2 mg/dL (0.2-1.0) 12/03/16 18:41 AST 15 U/L (15-37) 12/03/16 18:41 ALT 29 U/L (12-78) 12/03/16 18:41 Alkaline Phosphatase 145 U/L (45-117) H D 12/03/16 18:41 Total Protein 7.8 g/dl (6.4-8.2) 12/03/16 18:41 Albumin 4.1 g/dl (3.4-5.0) 12/03/16 18:41 CARDIAC ENZYMES Creatine Kinase 80 IU/L (26-192) 12/04/16 05:10 Troponin I < 0.02 ng/ml (0.00-0.05) 12/04/16 05:10 Assessment: This is a 51 year old female with no significant PMHx who presented to the ED after a syncopal episode Plan: 1) Possible low grade glioma - As evidence on MRI - Awaiting neurosurgery consult - Discussed with oncology: plan to be determined once neurosurgery input 2) Syncope - No clear cardiac etiology - EKG benign - Trop x3 negative - ECHO reviewed - Orthostatics negative - Appreciate cardiology consult 3) F/E/N: - Regular diet - Monitor electrolytes 4) Prophylaxis: - Lovenox 40mg sq daily 5) Dispo: - Needs neurosurgery evaluation CODE STATUS: FULL CODE Visit type - Emergency Visit Emergency Visit: Yes ED Registration Date: 12/04/16 Care time: The patient presented to the Emergency Department on the above date and was hospitalized for further evaluation of their emergent condition. - New Patient This patient is new to me today: Yes Date on this admission: 12/05/16 - Critical Care Critical Care patient: No
--- NOTE | 2016-12-05 12:38 | DS ---
Physical Examination Vital Signs: Vital Signs Temperature 98.3 F 12/05/16 09:48 Pulse Rate 81 12/05/16 09:48 Respiratory Rate 18 12/05/16 09:48 Blood Pressure 126/86 12/05/16 09:48 O2 Sat by Pulse Oximetry (%) 99 12/05/16 09:00 Discharge Summary Reason For Visit: SYNCOPE AND COLLAPSE Current Active Problems Low grade glioma of brain (Acute) Syncope (Acute) - Instructions Diet, Activity, Other Instructions: Please return to the ED with new, persistent, or worsening symptoms. Please follow-up with providers as indicated. Referrals: Jeovanny Stokes MD, FAANS [Staff Physician] - (Please follow-up with neurosurgery within 1 week to schedule an appointment for a repeat MRI of your brain in 6 months) Héctor Yap MD [Staff Physician] - (Please follow-up with Dr. Yap in 3 -4 months) Arnold Villela [Primary Care Provider] - 1 Week - Home Medications Comprehensive Discharge Medication List: Ambulatory Orders NK [No Known Home Medication] 11/13/14
--- NOTE | 2016-12-05 13:06 | PN ---
Progress Note (short form) - Note Progress Note: Patient seen and examined. Pt denies any complains. Being discharged today Constitutional: Yes: Well Nourished, No Distress, Calm Eyes: Yes: Conjunctiva Clear HENT: Yes: Atraumatic, Normocephalic Neck: Yes: Supple, Trachea Midline Cardiovascular: Yes: Regular Rate and Rhythm Respiratory: Yes: Regular, CTA Bilaterally Gastrointestinal: Yes: Normal Bowel Sounds Extremities: Yes: WNL Edema: No Temp Pulse Resp BP Pulse Ox 98.3 F 81 18 126/86 99 12/05/16 09:48 12/05/16 09:48 12/05/16 09:48 12/05/16 09:48 12/05/16 09:00 CBC, BMP 12/04/16 05:10 12/04/16 05:10 Current Medications Generic Name Dose Route Start Last Admin Trade Name Freq PRN Reason Stop Dose Admin Enoxaparin Sodium 40 mg 12/05/16 10:00 12/05/16 09:23 Lovenox - SQ 40 mg DAILY KIERSTEN Administration Patient with MRI brain compatible with low grade glioma. As per discussion with hospitalist, who spoke to NSG, continued surveillance recommended with periodic imaging MRI recommended. Pt is aware. Advised the pt on continued follow-up with her PMD and be uptodate with her cancer screening procedures No medical oncology input at this time Thank you Problem List - Problems (1) Low grade glioma of brain Code(s): C71.9 - MALIGNANT NEOPLASM OF BRAIN, UNSPECIFIED
== END 2016-12-05 13:11 | disposition home or self-care (01) ==
LOC: JER 17:34 → JERBED 20:42 → UNDOADMOB 20:42 → JERBED 21:20 → J4W 12-04 14:24 → JERBED 12-04 14:24 → OBSVTOIN 12-04 15:31 → INTOOBSV 12-04 15:31
PROVIDERS: ADMIT Internal Medicine; ATTEND Registered Nurse
PROC: 3E013GC Introduction of Other Therapeutic Substance into Subcutaneous Tissue, Percutaneous Approach (ICD-10-PCS; principal; 2016-12-03)
DX: R55 Syncope and collapse (principal); C71.9 Malignant neoplasm of brain, unspecified; F41.9 Anxiety disorder, unspecified; F32.9 Major depressive disorder, single episode, unspecified; Z82.3 Family history of stroke; Z82.49 Family history of ischemic heart disease and other diseases of the circulatory system
CPT/HCPCS: 36415; 70450-TC; 70551-TC; 70552-TC; 71010-TC; 80048; 80053; 81003; 82550; 83735; 83880; 84100; 84484; 85025; 93005; 93010; 93306-TC; 96372; 99285-25; G0378

== ENCOUNTER 2019-01-20 04:51 | Observation (INO) | payer OTHER ==
--- NOTE | 2019-01-20 04:56 | PDOC ---
Attending Attestation - Resident Resident Name: Trevor Schneider - ED Attending Attestation I have performed the following: I have examined & evaluated the patient, The case was reviewed & discussed with the resident, I agree w/resident's findings & plan - HPI HPI: 01/20/19 05:34 Pt has a hx of a glioma; she had a syncopal episode last night and later this AM she woke with AMS and will shakes and tremors. Her children bring her in for evaluation. - Physicial Exam PE: 01/20/19 06:33 Pt has no gross focal deficits. A+Ox3; afebrile heart and lungs normal Abd soft NT ND - Medical Decision Making 01/20/19 06:24 Patient Name: ROBERT BENITEZ THIS IS A PRELIMINARY REPORT FROM IMAGING [facility]AGULATION OPERATOR DATE OF SERVICE: 2019-01-20 05:25:08 IMAGES: [id number] EXAM: CT HEAD WITHOUT CONTRAST No acute hemorrhage, mass or acute territorial infarct. Artifact versus chronic lacunar infarct left tricia. Mucoperiosteal thickening paranasal sinuses. Visualized mastoid air cells clear. 01/20/19 06:33 Labs are all pending 01/20/19 06:56 Pt will be signed out to the day ER docs
[2019-01-20 06:13] LABS: BASO % 0.1 % (0-2.0); EOS % 5.9 % (0-4.5); HEMATOCRIT 43.9 % (32.4-45.2); HEMOGLOBIN 14.9 GM/dL (10.7-15.3); MCH 29.9 pg (25.7-33.7); MCHC 33.9 g/dl (32.0-36.0); MEAN PLT VOLUME 7.2 fl (7.5-11.1); MONO % 2.4 % (3.8-10.2); NEUT % 76.6 % (42.8-82.8); PLATELET COUNT 367 K/MM3 (134-434); RBC 4.99 M/mm3 (3.60-5.2); RDW 13.3 % (11.6-15.6); WHITE BLOOD COUNT 13.3 K/mm3 (4.0-10.0)
[2019-01-20 06:26] LABS: PROTHROMBIN TIME (PATIENT) 11.8 SEC (9.7-13.0)
[2019-01-20 06:36] LABS: ALBUMIN 4.1 g/dl (3.4-5.0); ALK PHOS 128 U/L (45-117); ANION GAP 7 MMOL/L (8-16); BILIRUBIN,TOTAL 0.4 mg/dL (0.2-1); BLOOD UREA NITROGEN 21.2 mg/dL (7-18); CALCIUM 9.3 mg/dL (8.5-10.1); CHLORIDE 105 mmol/L (98-107); CO2 27 mmol/L (21-32); CREATININE 1.1 mg/dL (0.55-1.3); GLUCOSE,RANDOM 141 mg/dL (74-106); MAGNESIUM 2.1 mg/dL (1.8-2.4); PHOSPHOROUS 3.6 mg/dL (2.5-4.9); POTASSIUM 3.6 mmol/L (3.5-5.1); SGOT/AST 16 U/L (15-37); SGPT/ALT 24 U/L (13-61); SODIUM 139 mmol/L (136-145); TOT PROT 7.4 g/dl (6.4-8.2)
--- NOTE | 2019-01-20 06:45 | PDOC ---
History of Present Illness - General Chief Complaint: CVA/TIA Stated Complaint: HEADACHE Time Seen by Provider: 01/20/19 04:56 History Source: Patient Exam Limitations: No Limitations - History of Present Illness Initial Comments: 01/20/19 06:31 53 yo female pmh of glioma (followed by NS, last MRI 6 months ago, stable) and HTN presents to the ED after a syncopal episode. Pt reported to take diclofenac for the 2nd time ever for back pain around 3: 45 am, noted diffuse swelling and itchiness, soon after had a syncopal episode, lost consciousness for approx 30 sec (son witnessed event) and was noted to be confused and has a new jerking movement of both upper ext. On arrival to the ED, pt noted to answer questions slowly and continues to have the described jerking movement. Pt denies current PORTER, changes in vision, new weakness or sensory changes, F/C/N/V, abdominal pain , changes in bowel or bladder habits, recent travel Past History - Past Medical History Allergies/Adverse Reactions: Allergies Allergy/AdvReac Type Severity Reaction Status Date / Time No Known Allergies Allergy Verified 12/03/16 18:15 Home Medications: Ambulatory Orders NK [No Known Home Medication] 11/13/14 Anemia: No COPD: No HTN: Yes - Psycho Social/Smoking Cessation Hx Smoking History: Never smoked Have you smoked in the past 12 months: No Number of Cigarettes Smoked Daily: 0 Information on smoking cessation initiated: No Hx Alcohol Use: No Drug/Substance Use Hx: No Substance Use Type: None Review of Systems - Review of Systems Constitutional: No: Chills, Fever Respiratory: No: Shortness of Breath Cardiac (ROS): No: Chest Pain ABD/GI: No: Constipated, Diarrhea, Nausea, Vomiting : No: Burning, Dysuria, Flank Pain, Hematuria Neurological: No: Headache (resolved), Numbness, Paresthesia, Weakness (resolved ) *Physical Exam - Vital Signs Last Vital Signs Temp Pulse Resp BP Pulse Ox 97.3 F L 79 20 115/59 L 97 01/20/19 05:15 01/20/19 06:19 01/20/19 05:15 01/20/19 06:19 01/20/19 05:15 - Physical Exam General Appearance: Yes: Nourished, Appropriately Dressed. No: Apparent Distress HEENT: positive: EOMI, TETE Neck: positive: Supple. negative: Carotid bruit Respiratory/Chest: positive: Lungs Clear, Normal Breath Sounds. negative: Respiratory Distress, Accessory Muscle Use, Crackles, Rales, Rhonchi, Stridor, Wheezing Cardiovascular: positive: Regular Rhythm, Regular Rate, S1, S2. negative: Edema , JVD, Murmur Vascular Pulses: Dorsalis-Pedis (R): 4+, Doralis-Pedis (L): 4+ Gastrointestinal/Abdominal: positive: Flat, Soft. 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-XII NML intact, Fully Oriented, Alert, Normal Mood/ Affect, Normal Response, Motor Strength / ED Treatment Course - LABORATORY CBC & Chemistry Diagram: 01/20/19 05:54 01/20/19 05:54 - ADDITIONAL ORDERS Additional order review: Laboratory Results 01/20/19 01/20/19 01/20/19 05:54 05:54 05:54 WBC 13.3 H RBC 4.99 Hgb 14.9 Hct 43.9 MCV 88.0 MCH 29.9 MCHC 33.9 RDW 13.3 Plt Count 367 MPV 7.2 L Absolute Neuts (auto) 10.2 H Neutrophils % 76.6 D Lymphocytes % 15.0 D Monocytes % 2.4 L Eosinophils % 5.9 H Basophils % 0.1 Nucleated RBC % 0 PT with INR 11.80 INR 1.00 Serum , Qual Negative 01/20/19 05:54 RBC 4.99 MCV 88.0 MCHC 33.9 RDW 13.3 MPV 7.2 L Neutrophils % 76.6 D Lymphocytes % 15.0 D Monocytes % 2.4 L Eosinophils % 5.9 H Basophils % 0.1 - RADIOLOGY Radiology Studies Ordered: Category Date Time Status HEAD CT WITHOUT CONTRAST [CT] Stat CT Scan 01/20/19 05:26 Ordered CHEST X-RAY PORTABLE* [RAD] Stat Radiology 01/20/19 05:42 Ordered Medical Decision Making - Medical Decision Making 01/20/19 06:48 53 yo female pmh of glioma (followed by NS, last MRI 6 months ago, stable) and HTN presents to the ED after a syncopal episode. Pt reported to take diclofenac for the 2nd time ever for back pain around 3: 45 am, noted diffuse swelling and itchiness, soon after had a syncopal episode, lost consciousness for approx 30 sec (son witnessed event) and was noted to be confused and has a new jerking movement of both upper ext. On arrival to the ED, pt noted to answer questions slowly and continues to have the described jerking movement. Pt denies current PORTER, changes in vision, new weakness or sensory changes, F/C/N/V, abdominal pain , changes in bowel or bladder habits, recent travel vitals WNL DDX INLT: medication rxn, CVA/TIA, syncope CVA workup done Head CT no acute findings EKG NSR, no arrhythmia labs neg for electrolyte ab, trop neg Pt stable for admission for syncope/CVA/TIA pending admission, microblog sent
--- NOTE | 2019-01-20 08:29 | PDOC ---
*Physical Exam - Vital Signs Last Vital Signs Temp Pulse Resp BP Pulse Ox 97.6 F 78 18 111/54 L 95 01/20/19 06:43 01/20/19 06:43 01/20/19 06:43 01/20/19 06:43 01/20/19 06:43 - Physical Exam General Appearance: Yes: Nourished, Appropriately Dressed. No: Apparent Distress HEENT: positive: Normal ENT Inspection, Normal Voice Neck: positive: Supple Respiratory/Chest: positive: Lungs Clear Cardiovascular: positive: Regular Rhythm, Regular Rate, S1, S2 Vascular Pulses: Dorsalis-Pedis (R): 2+, Doralis-Pedis (L): 2+ Gastrointestinal/Abdominal: positive: Soft Rectal Exam: positive: deferred Lymphatic: negative: Adenopathy Musculoskeletal: positive: Normal Inspection. negative: CVA Tenderness Extremity: positive: Normal Capillary Refill, Normal Inspection, Normal Range of Motion Integumentary: positive: Normal Color, Dry, Warm Neurologic: positive: Fully Oriented, Alert, Normal Mood/Affect ED Treatment Course - LABORATORY CBC & Chemistry Diagram: 01/20/19 05:54 01/20/19 05:54 - ADDITIONAL ORDERS Additional order review: Laboratory Results 01/20/19 01/20/19 01/20/19 05:54 05:54 05:54 PT with INR 11.80 INR 1.00 Sodium Potassium Chloride Carbon Dioxide Anion Gap BUN Creatinine Est GFR (CKD-EPI)AfAm Est GFR (CKD-EPI)NonAf Random Glucose Calcium Phosphorus Magnesium Total Bilirubin AST ALT Alkaline Phosphatase Creatine Kinase Troponin I Total Protein Albumin Serum , Qual Negative Blood Type O POSITIVE Antibody Screen Negative 01/20/19 05:54 PT with INR INR Sodium 139 Potassium 3.6 Chloride 105 Carbon Dioxide 27 Anion Gap 7 L BUN 21.2 H Creatinine 1.1 Est GFR (CKD-EPI)AfAm 65.92 Est GFR (CKD-EPI)NonAf 56.87 Random Glucose 141 H Calcium 9.3 Phosphorus 3.6 Magnesium 2.1 Total Bilirubin 0.4 AST 16 ALT 24 Alkaline Phosphatase 128 H Creatine Kinase 149 Troponin I < 0.02 Total Protein 7.4 Albumin 4.1 Serum , Qual Blood Type Antibody Screen 01/20/19 05:54 RBC 4.99 MCV 88.0 MCHC 33.9 RDW 13.3 MPV 7.2 L Neutrophils % 76.6 D Lymphocytes % 15.0 D Monocytes % 2.4 L Eosinophils % 5.9 H Basophils % 0.1 Medical Decision Making - Medical Decision Making Patient signed out to me from night team to be admitted to the hospital for syncope. - Patient microblogged by night team - Patient currently stable and has no complaints at the present time - Senior resident Dr. Gloria endorsed patient to hospitalist and they accepted patient for admission Discharge - Discharge Information Problems reviewed: Yes Clinical Impression/Diagnosis: Syncope Qualifiers: Syncope type: unspecified Qualified Code(s): R55 - Syncope and collapse Condition: Stable - Admission Yes - Follow up/Referral Referrals: Kilo Rivera MD [Primary Care Provider] - - Patient Discharge Instructions - Post Discharge Activity
[2019-01-20] MEDS ORDERED: ACETAMINOPHEN 325 MG TABLET (FP) PO ONE (10:34)
[2019-01-20] MEDS ORDERED: ACETAMINOPHEN 325 MG TABLET (FP) ONE (10:35)
--- NOTE | 2019-01-20 11:15 | HP ---
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 Pt is a 53 y/o F with a significant past medical history of HTN and HLD who presented to [facility] due to syncope. Pt endorses she took a diclofenalac pill earlier in the morning for back pain where shortly afterwards she began to become lightheaded and break out in a rash; rash occurred on both of her arms and legs. Pt endorses she has a history of allergy to diclofenalac. Though patient states via casting operator helper that she did not lose consciousness, EMS record indicates she did in fact lose consciousness. Denies headache, chest pain, shortness of breath, nausea/vomiting, numbness or tingling in her hands or lower extremities. PMH as above SociaHx- Denies T/A/D SurgHx- Allergies: Penicllins ER course was notable for: (1) Head CT--> Negative for acute intracranial pathology (2) BP initially was 98 systolic. (3) HOME MEDICATIONS: Home Medications Medication Instructions Recorded NK [No Known Home Medication] 11/13/14 REVIEW OF SYSTEMS CONSTITUTIONAL: Absent: fever, chills, diaphoresis, generalized weakness, malaise, loss of appetite, weight change HEENT: Absent: rhinorrhea, nasal congestion, throat pain, throat swelling, difficulty swallowing, mouth swelling, ear pain, eye pain, visual changes CARDIOVASCULAR: Absent: chest pain, syncope, palpitations, irregular heart rate, lightheadedness , peripheral edema RESPIRATORY: Absent: cough, shortness of breath, dyspnea with exertion, orthopnea, wheezing, stridor, hemoptysis GASTROINTESTINAL: Absent: abdominal pain, abdominal distension, nausea, vomiting, diarrhea, constipation, melena, hematochezia GENITOURINARY: Absent: dysuria, frequency, urgency, hesitancy, hematuria, flank pain, genital pain MUSCULOSKELETAL: Absent: myalgia, arthralgia, joint swelling, back pain, neck pain SKIN: Absent: rash, itching, pallor HEMATOLOGIC/IMMUNOLOGIC: Absent: easy bleeding, easy bruising, lymphadenopathy, frequent infections ENDOCRINE: Absent: unexplained weight gain, unexplained weight loss, heat intolerance, cold intolerance NEUROLOGIC: Absent: headache, focal weakness or paresthesias, dizziness, unsteady gait, seizure, mental status changes, bladder or bowel incontinence PSYCHIATRIC: Absent: anxiety, depression, suicidal or homicidal ideation, hallucinations. PHYSICAL EXAMINATION Vital Signs - 24 hr 01/20/19 01/20/19 01/20/19 05:15 06:19 06:43 Temperature 97.3 F L 97.6 F Pulse Rate 80 Pulse Rate [ 78 Right] Pulse Rate [ 79 Supine] Respiratory 20 18 Rate Blood Pressure 120/92 Blood Pressure 111/54 L [Left Arm] Blood Pressure 115/59 L [Supine] O2 Sat by Pulse 97 95 Oximetry (%) 01/20/19 10:38 Temperature 97.6 F Pulse Rate Pulse Rate [ 83 Right] Pulse Rate [ Supine] Respiratory 16 Rate Blood Pressure Blood Pressure 110/73 [Left Arm] Blood Pressure [Supine] O2 Sat by Pulse 96 Oximetry (%) GENERAL: NAD HEAD: Normal with no signs of trauma. EYES: EOMI Sclera Clear EARS, NOSE, THROAT: MMM NECK: Supple LUNGS: CTA b/l HEART: RRR S1S2 ABDOMEN:Soft NDNT LOWER EXTREMITIES: No CCE NEUROLOGICAL: Strength 5/5 throught. SILT upper/lower extremities. CN 2-12 intact. Refles 2+. Gait wnl. PSYCHIATRIC: Cooperative. Good eye contact. Appropriate mood and affect. SKIN: Warm, dry, normal turgor, no rashes or lesions noted, normal capillary refill. Laboratory Results - last 24 hr 01/20/19 01/20/19 01/20/19 05:54 05:54 05:54 WBC 13.3 H RBC 4.99 Hgb 14.9 Hct 43.9 MCV 88.0 MCH 29.9 MCHC 33.9 RDW 13.3 Plt Count 367 MPV 7.2 L Absolute Neuts (auto) 10.2 H Neutrophils % 76.6 D Lymphocytes % 15.0 D Monocytes % 2.4 L Eosinophils % 5.9 H Basophils % 0.1 Nucleated RBC % 0 PT with INR 11.80 INR 1.00 Sodium 139 Potassium 3.6 Chloride 105 Carbon Dioxide 27 Anion Gap 7 L BUN 21.2 H Creatinine 1.1 Est GFR (CKD-EPI)AfAm 65.92 Est GFR (CKD-EPI)NonAf 56.87 Random Glucose 141 H Calcium 9.3 Phosphorus 3.6 Magnesium 2.1 Total Bilirubin 0.4 AST 16 ALT 24 Alkaline Phosphatase 128 H Creatine Kinase 149 Troponin I < 0.02 Total Protein 7.4 Albumin 4.1 Serum , Qual Blood Type Antibody Screen 01/20/19 01/20/19 05:54 05:54 WBC RBC Hgb Hct MCV MCH MCHC RDW Plt Count MPV Absolute Neuts (auto) Neutrophils % Lymphocytes % Monocytes % Eosinophils % Basophils % Nucleated RBC % PT with INR INR Sodium Potassium Chloride Carbon Dioxide Anion Gap BUN Creatinine Est GFR (CKD-EPI)AfAm Est GFR (CKD-EPI)NonAf Random Glucose Calcium Phosphorus Magnesium Total Bilirubin AST ALT Alkaline Phosphatase Creatine Kinase Troponin I Total Protein Albumin Serum , Qual Negative Blood Type O POSITIVE Antibody Screen Negative ASSESSMENT/PLAN: Pt is a 53 y/o F with a significant past medical history of HTN and HLD who presented to [facility] due to syncope. # Lightheadedness/Near Syncope -Tele monitoring -EKG ordered -Orthostatic Vitals Signs #HTN -Resume Lisinopril 5 mg daily #HLD -Resume Atorvastatin 10 daily #FEN NS@75cc/hr Monitor electrolytes Sodium Controlled #DVT ppc: -HEP SQ TID #Dispo: -Med-surg Visit type - Emergency Visit Emergency Visit: Yes ED Registration Date: 01/20/19 Care time: The patient presented to the Emergency Department on the above date and was hospitalized for further evaluation of their emergent condition. - New Patient This patient is new to me today: Yes Date on this admission: 01/20/19 - Critical Care Critical Care patient: No ATTENDING PHYSICIAN STATEMENT I saw and evaluated the patient. I reviewed the resident's note and discussed the case with the resident. I agree with the resident's findings and plan as documented. SUBJECTIVE: OBJECTIVE: ASSESSMENT AND PLAN:
--- NOTE | 2019-01-20 11:31 | EKG ---
Test Reason : Blood Pressure : / mmHG Vent. Rate : 074 BPM Atrial Rate : 074 BPM P-R Int : 144 ms QRS Dur : 086 ms QT Int : 402 ms P-R-T Axes : 045 015 025 degrees QTc Int : 446 ms NORMAL SINUS RHYTHM WHEN COMPARED WITH ECG OF 03-DEC-2016 18:05, NO SIGNIFICANT CHANGE WAS FOUND Confirmed by FARSHAD MOON MD ([id number]) on 01/20/2019 11:30:50 AM Referred By: Confirmed By:FARSHAD MOON MD
[2019-01-20 12:05] VITALS: BMI 30.1
[2019-01-20] MEDS: HEPARIN NA (PORCINE) 5,000 UNITS/ML 1ML VIAL SQ SCH ×2 (14:02→21:59)
--- NOTE | 2019-01-20 16:41 | PN ---
Teaching Attending Note Name of Resident: Stanley Palomares ATTENDING PHYSICIAN STATEMENT I reviewed the resident's note and discussed the case with the resident. I agree with the resident's findings and plan as documented. CC: rash and light headedness HPI: 53 y/o lady with h/o HTN and HLP who presented with hives and light headednes . Paint Brush [employer] phone ( [id number]) was used , but despite that she could not give a good history . very poor historian. she states she is allergic to PCN and because of her chronic back pain, she took a pill of Diclofenac/PCN , she got from [facility]. About an hour later she developed hives and itching and felt light headed while she was walking. sitting made her feel better . a little while after coming to he ER , her rash resolved. she denied any difficulty breathing or any throat /swallowing issues. her allergy to PCN is Hives. OBJECTIVE: NAD , awake, alert, nL speech HEENT: MMM, Nl oropharynx, no edema in uvula. no thrush. No LAP in neck CV: RRR, no MRG Lungs: CTAB Ext: No edema or erythema Abd: soft, NT, ND, NL BS. Neuro: EOMI, round pupils, reactive to light . no facila droop, tongue at mid line . strength 5/5 in upper and lower extremities proximally and distally . sensation to light touch NL. reflexes 2+ knee jerk and biceps b/l ASSESSMENT AND PLAN: 53 y/o lady with h/o HTN and HLP who presented with hives and light headedness. 1- Hives. due to PCN allergy. resolved. No signs of resp compromise. - monitor . No specific treatment is needed - she was asked not to use PCN , and to avoid non prescribed meds 2- Light headedness: unclear etiology. Orthostatic hypotension VS part of the allergic reaction VS arrhythmias - EKG not found in chart , EKG ordered - tele monitoring 3- H/o HTnand HLP: cont her home meds DVT PX : SQ heparin
[2019-01-20] MEDS ORDERED: SODIUM CHLORIDE 1,000 ML IV SCH (17:30)
[2019-01-20] MEDS ORDERED: ATORVASTATIN CA 10 MG TABLET (FP) PO SCH (22:00)
[2019-01-21] MEDS: HEPARIN NA (PORCINE) 5,000 UNITS/ML 1ML VIAL SQ SCH ×2 (06:19→14:31)
[2019-01-21 07:55] LABS: INR 1.01 (0.83-1.09); PROTHROMBIN TIME (PATIENT) 11.9 SEC (9.7-13.0)
[2019-01-21 07:58] LABS: ACTIVATED PTT 28.8 SECONDS (25.2-36.5)
[2019-01-21 08:11] LABS: ALBUMIN 3.3 g/dl (3.4-5.0); BILIRUBIN,TOTAL 0.4 mg/dL (0.2-1); BLOOD UREA NITROGEN 16.2 mg/dL (7-18); CALCIUM 8.4 mg/dL (8.5-10.1); CREATININE 0.9 mg/dL (0.55-1.3); MAGNESIUM 2.1 mg/dL (1.8-2.4); PHOSPHOROUS 3.2 mg/dL (2.5-4.9); POTASSIUM 4.1 mmol/L (3.5-5.1); TOT PROT 6.4 g/dl (6.4-8.2)
[2019-01-21 08:13] LABS: BASO % 0.5 % (0-2.0); EOS % 20.7 % (0-4.5); HEMATOCRIT 38.7 % (32.4-45.2); HEMOGLOBIN 13.4 GM/dL (10.7-15.3); LYMPH % 33.6 % (8-40); MCH 30.4 pg (25.7-33.7); MCHC 34.5 g/dl (32.0-36.0); MEAN CELL VOLUME 87.9 fl (80-96); MEAN PLT VOLUME 7.3 fl (7.5-11.1); MONO % 4.9 % (3.8-10.2); NEUT % 40.3 % (42.8-82.8); PLATELET COUNT 326 K/MM3 (134-434); RDW 13.3 % (11.6-15.6); WHITE BLOOD COUNT 6.7 K/mm3 (4.0-10.0)
[2019-01-21] MEDS ORDERED: LISINOPRIL 5 MG TABLET (FP) PO SCH (10:00)
[2019-01-21 10:35] LABS: ANISOCYTOSIS 0; MACROCYTOSIS 0; PLATELET ESTIMATE NORMAL
--- NOTE | 2019-01-21 10:42 | CON.NEURO ---
Consult - Past Medical History ...: No - Alcohol/Substance Use Hx Alcohol Use: No - Smoking History Smoking history: Never smoked Have you smoked in the past 12 months: No Aproximately how many cigarettes per day: 0 Home Medications - Allergies Allergies/Adverse Reactions: Allergies Allergy/AdvReac Type Severity Reaction Status Date / Time Penicillins Allergy Hives Verified 01/20/19 15:57 - Home Medications Home Medications: Ambulatory Orders Atorvastatin Ca [Lipitor] 10 mg PO HS 01/20/19 Lisinopril 5 mg PO DAILY 01/20/19 Physical Exam-Neuro Vital Signs: Vital Signs Temperature 97.5 F L 01/21/19 02:00 Pulse Rate 73 01/21/19 06:00 Respiratory Rate 20 01/21/19 06:00 Blood Pressure 131/54 L 01/21/19 06:00 O2 Sat by Pulse Oximetry (%) 100 01/20/19 12:34 Labs: CBC, BMP 01/21/19 06:45 01/21/19 06:45 INR, PTT INR 1.01 (0.83-1.09) 01/21/19 06:45 Assessment/Plan cc episode of syncope HPI 53 yecaron jang female history of HTN, HLD, came to hospital for episode of passing out. Patient took diclofenac and felt lightheadedness, and there was a rash. She says sh ei sallergic to diclofenac. There was no tonic clonic seizure or tongue bite or incontinence. Paitent denies any history of stroke or any other focal neurological symptoms PMH as above SociaHx- denies any toxic habits SurgHx- Allergies: Penicllins HOME MEDICATIONS: Home Medications Medication Instructions Recorded NK [No Known Home Medication] 11/13/14 ROS,FH,SH reviewed in chart NEUROLOGICAL EXAMINATOIN Alert oriented x 3, afebrile, vss, neck is supple eomi, pupils reactive no face asymmetry moving all extremity sensation is norml ct head is normal Assessment/Plan 53 yea laine female history of HTN, HLD, came to hospital for episode of passing out, most likley syncope. Unlikley to be seizure. Plan: no need for mri of brain , and routine eeg can be obtained - continue current level of care Thanking you so much Sid Bear MD
[2019-01-21] MEDS ORDERED: FLU VACCINE QUAD 60 MCG/0.5 ML (MDV 19-20) IM ONE (13:45)
[2019-01-21 14:31] VITALS: BP 125/77; PULSE 83; TEMP 98.4
--- NOTE | 2019-01-21 15:06 | DS ---
Physical Exam: SUBJECTIVE: Patient seen and examined. She denies rash, itching, chest pain, shortness of breath, abdominal pain, nausea, or vomiting. She is feeling better than yesterday. OBJECTIVE: Vital Signs Period Temp Pulse Resp BP Sys/Looney Pulse Ox Last 24 Hr 97.5 F-99.5 F 73-98 18-20 95-138/48-82 PHYSICAL EXAM GENERAL: The patient is awake, alert, and fully oriented, in no acute distress. Standing on side of bed. HEAD: Normal with no signs of trauma. EYES: PERRL, extraocular movements intact, conjunctiva clear. ENT: Ears normal, nares patent, moist mucous membranes. NECK: Trachea midline, full range of motion, supple. LUNGS: Clear to auscultation bilaterally, no wheezes HEART: Regular rate and rhythm, no murmur ABDOMEN: Soft, nontender, nondistended, normoactive bowel sounds EXTREMITIES: Warm, well-perfused, no edema. NEUROLOGICAL: Cranial nerves II through XII grossly intact. Normal speech. PSYCH: Normal mood, normal affect. SKIN: Warm, dry, normal turgor, no rashes noted LABS Laboratory Results - last 24 hr 01/21/19 01/21/19 01/21/19 06:45 06:45 06:45 WBC 6.7 RBC 4.40 Hgb 13.4 Hct 38.7 MCV 87.9 MCH 30.4 MCHC 34.5 RDW 13.3 Plt Count 326 MPV 7.3 L Absolute Neuts (auto) 2.7 Neutrophils % 40.3 L D Neutrophils % (Manual) 23.8 L Band Neutrophils % 0.0 Lymphocytes % 33.6 D Lymphocytes % (Manual) 36.6 Monocytes % 4.9 D Monocytes % (Manual) 9 Eosinophils % 20.7 H* D Eosinophils % (Manual) 20.8 H Basophils % 0.5 D Basophils % (Manual) 0.0 Myelocytes % (Man) 0 Promyelocytes % (Man) 0 Blast Cells % (Manual) 0 Nucleated RBC % 0 Metamyelocytes 0 Hypochromia 0 Platelet Estimate Normal Polychromasia 0 Poikilocytosis 0 Anisocytosis 0 Microcytosis 0 Macrocytosis 0 PT with INR 11.90 INR 1.01 PTT (Actin FS) 28.8 Sodium 142 Potassium 4.1 Chloride 110 H Carbon Dioxide 25 Anion Gap 6 L BUN 16.2 Creatinine 0.9 Est GFR (CKD-EPI)AfAm 84.01 Est GFR (CKD-EPI)NonAf 72.49 Random Glucose 94 Calcium 8.4 L Phosphorus 3.2 Magnesium 2.1 Total Bilirubin 0.4 AST 14 L ALT 22 Alkaline Phosphatase 117 Total Protein 6.4 Albumin 3.3 L HOSPITAL COURSE: Ms. Zack Le is a 53y/o female with PCN allergy, HTN, and HLD who presents following taking a diclofenac/PCN pill and breaking out in a rash. It was reported by EMS that she was hypotensive and syncopized. She did not have anaphylaxis. Head CT was negative for acute processes. She was monitored on tele with no events. Neurology evaluated pt and no MRI was needed. Her rash and itching improved, so she was stable for discharge. She was instructed not to take medications with penicillin in it. Date of Admission:01/20/19 Date of Discharge: 01/21/19 Minutes to complete discharge: 35 Discharge Summary Problems reviewed: Yes Reason For Visit: SYNCOPE Current Active Problems Allergic reaction (Acute) Syncope (Acute) Condition: Improved - Instructions Diet, Activity, Other Instructions: YOUR VISIT: You were admitted to the hospital because you passed out and had a rash from a penicillin medication. We did imaging of your brain which was normal. You were observed on the cardiac monitored floor, your symptoms improved and you are stable to be discharged. MEDICATIONS: Continue your prescribed medications as directed. DO NOT TAKE ANY PENICILLIN CONTAINING MEDICATIONS FOLLOW UP: Dr. Rivera, primary care, in [address] Bear, neurology, when you are able. OTHER INSTRUCTIONS: You have a penicillin allergy. Avoid medication which contain penicillin because you could have a severe allergic reaction. Return to the emergency room or call 911 if you have chest pain, difficulty breathing, vomiting, new rash, dizziness, or if you pass out. Referrals: Sid Bear MD [Staff Physician] - Kilo Rivera MD [Primary Care Provider] - Disposition: HOME - Home Medications Comprehensive Discharge Medication List: Ambulatory Orders Atorvastatin Ca [Lipitor] 10 mg PO HS 01/20/19 Lisinopril 5 mg PO DAILY 01/20/19 This patient is new to me today: Yes Date on this admission: 01/21/19 Emergency Visit: Yes ED Registration Date: 01/20/19 Care time: The patient presented to the Emergency Department on the above date and was hospitalized for further evaluation of their emergent condition. Critical Care patient: No - Discharge Referral Referred to [facility] No ATTENDING PHYSICIAN STATEMENT I saw and evaluated the patient. I reviewed the resident's note and discussed the case with the resident. I agree with the resident's findings and plan as documented. SUBJECTIVE: OBJECTIVE: ASSESSMENT AND PLAN:
--- NOTE | 2019-01-21 18:41 | PN ---
Teaching Attending Note Name of Resident: Sophia Josue ATTENDING PHYSICIAN STATEMENT I saw and evaluated the patient. I reviewed the resident's note and discussed the case with the resident. I agree with the resident's findings and plan as documented. SUBJECTIVE: No fever or chills. No pain , rash or itching. OBJECTIVE: NAD , awake, alert, nL speech HEENT: MMM, Nl oropharynx, no edema in uvula. CV: RRR, no MRG Lungs: CTAB Ext: No edema or erythema ASSESSMENT AND PLAN: 53 y/o lady with h/o HTN and HLP who presented with hives and light headedness. 1- Hives. due to PCN allergy. resolved. 2- Light headedness: unclear etiology. Orthostatic hypotension VS part of the allergic reaction VS arrhythmias - EKG reviewed. tele reviewed with no events 3- H/o HTn and HLP: cont her home meds dc home /. f/u with PCP and neuro
== END 2019-01-21 14:30 | disposition home or self-care (01) ==
LOC: JER 04:51 → JERBED 08:29 → J4W 10:51
PROVIDERS: ADMIT Internal Medicine; ATTEND Internal Medicine
DX: R55 Syncope and collapse (principal); L50.0 Allergic urticaria; T39.395A Adverse effect of other nonsteroidal anti-inflammatory drugs [NSAID], initial encounter; Y92.038 Other place in apartment as the place of occurrence of the external cause; Z88.0 Allergy status to penicillin; I10 Essential (primary) hypertension; E78.00 Pure hypercholesterolemia, unspecified; C71.9 Malignant neoplasm of brain, unspecified
CPT/HCPCS: 36415; 70450-TC; 71045-TC-FY; 80053; 82550; 83735; 84100; 84484; 84703; 85025; 85610; 85730; 86850; 86900; 86901; 87086; 90471; 93005; 93010; 99283-25; G0378; J1644; J7030; Q2036

== ENCOUNTER 2020-11-29 00:09 | Emergency (ER) | payer OTHER ==
[2020-11-29 00:41] VITALS: TEMP 98.4; BMI 31.1
[2020-11-29] MEDS ORDERED: FAMOTIDINE 20 MG/50 ML IVPB 20 MG/50 ML MG IVPB ONE (00:49)
[2020-11-29] MEDS ORDERED: methylPREDNISolone NA SUCC 125 MG/2 ML VIAL IVPB ONE (00:49)
[2020-11-29] MEDS ORDERED: SODIUM CHLORIDE 500 ML IV STA (00:50)
[2020-11-29] MEDS ORDERED: methylPREDNISolone NA SUCC 125 MG/2 ML VIAL ONE (00:57)
[2020-11-29 01:02] LABS: BASO % 0.4 % (0-2.0); HEMATOCRIT 44.1 % (32.4-45.2); HEMOGLOBIN 15.1 GM/dL (10.7-15.3); MCH 29.6 pg (25.7-33.7); MCHC 34.1 g/dl (32.0-36.0); MEAN CELL VOLUME 86.6 fl (80-96); MEAN PLT VOLUME 6.9 fl (7.5-11.1); MONO % 3.8 % (3.8-10.2); NEUT % 40.8 % (42.8-82.8); PLATELET COUNT 436 10^3/uL (134-434); RBC 5.09 M/mm3 (3.60-5.2); RDW 13.5 % (11.6-15.6); WHITE BLOOD COUNT 12.5 K/mm3 (4.0-10.0)
[2020-11-29 01:09] VITALS: BP 102/65; PULSE 83
[2020-11-29 01:30] LABS: CHLORIDE 106 mmol/L (98-107); SODIUM 139 mmol/L (136-145)
[2020-11-29 01:32] LABS: ANION GAP 10 MMOL/L (8-16); BLOOD UREA NITROGEN 20.9 mg/dL (7-18); CALCIUM 8.7 mg/dL (8.5-10.1); CO2 24 mmol/L (21-32)
[2020-11-29 01:33] LABS: ALBUMIN 3.7 g/dl (3.4-5.0); GLUCOSE,RANDOM 169 mg/dL (74-106)
[2020-11-29 01:35] LABS: SGPT/ALT 26 U/L (13-61)
[2020-11-29 01:36] LABS: CREATININE 1.1 mg/dL (0.55-1.3); SGOT/AST 18 U/L (15-37)
[2020-11-29 01:37] LABS: BILIRUBIN,TOTAL 0.2 mg/dL (0.2-1); TOT PROT 7.3 g/dl (6.4-8.2)
[2020-11-29 01:38] LABS: ALK PHOS 120 U/L (45-117)
== END 2020-11-29 02:21 | disposition home or self-care (01) ==
LOC: JER 00:09
PROC: 3E033GC Introduction of Other Therapeutic Substance into Peripheral Vein, Percutaneous Approach (ICD-10-PCS; principal; 2020-11-29)
DX: T78.49XA Other allergy, initial encounter (principal)
CPT/HCPCS: 36415; 71045-TC-FY; 80053; 82550; 82553; 84484; 85025; 93005; 93010; 99285-25

== ENCOUNTER 2020-12-12 16:38 | Emergency (ER) | payer OTHER ==
[2020-12-12 17:24] VITALS: BP 147/62; PULSE 83; TEMP 98; BMI 34.4
[2020-12-12] MEDS ORDERED: KETOROLAC TROMETHAMINE 30 MG/1 ML VIAL IM ONE (18:14)
== END 2020-12-12 20:55 | disposition home or self-care (01) ==
LOC: JERFT 16:38 → JER 16:38 → JERFT 20:55
PROC: 3E0233Z Introduction of Anti-inflammatory into Muscle, Percutaneous Approach (ICD-10-PCS; principal; 2020-12-12)
DX: S22.42XA Multiple fractures of ribs, left side, initial encounter for closed fracture (principal); W08.XXXA Fall from other furniture, initial encounter
CPT/HCPCS: 71046-TC-FY; 71101-TC-LT-FY; 99284-25